=== PATIENT | male | born 1980 ===

== ENCOUNTER 2019-07-10 15:34 | Emergency (ER) | payer OTHER ==
--- NOTE | 2019-07-10 17:02 | ED ---
Neurological HPI - HPI Summary HPI Summary: This patient is a 38 year old M presenting to [facility] with a chief complaint of left sided pain and heaviness since 07/08/19. Pt has a PMHx of migraines. So his FLORIAN began like a normal FLORIAN on 07/07 with pain throughout his whole head. However on 07/08 migrated to his left side of his head. He reports gradual progression of general left sided tingling and heaviness. Pt reports left eye twitching, swollen left side of face, left middle finger is painful, and he reports he feels a nerve radiating from finger to neck and toe up leg on left side. Pt denies issue with vision, neck pain, unsteady gait, dizziness. Pt also has PMHx of sinus issues. Denies fevers. - History of Current Complaint Chief Complaint: EDNeurologicalDeficit Stated Complaint: NUMBNESS/HEADACHE PER PT Time Seen by Provider: 07/10/19 16:33 Hx Obtained From: Patient Onset/Duration: Gradual Onset Timing: Constant Onset Severity: Moderate Current Severity: Moderate Pain Intensity: 6 Pain Scale Used: 0-10 Numeric Character: Pressure, Numbness/Tingling Aggravating: Nothing Alleviating: Nothing Associated Signs and Symptoms: Positive: Headache. Negative: Unsteady Gait, Visual Changes, Dizziness, Neck Pain/Stiffness - Allergy/Home Medications Allergies/Adverse Reactions: Allergies Allergy/AdvReac Type Severity Reaction Status Date / Time No Known Allergies Allergy Verified 07/10/19 15:39 PMH/Surg Hx/FS Hx/Imm Hx Sensory History: Denies: Hx Legally Blind, Hx Deafness Opthamlomology History: Denies: Hx Legally Blind EENT History: Denies: Hx Deafness - Surgical History Surgical History: None Infectious Disease History: No Infectious Disease History: Denies: Traveled Outside the [place] in Last 30 Days - Family History Known Family History: Positive: Other - trigeminal neuralgia - Social History Alcohol Use: Occasionally Substance Use Type: Reports: None Hx Tobacco Use: Yes Smoking Status (MU): Light Every Day Tobacco Smoker Review of Systems Positive: Other - L eye twitching. Negative: Blurred Vision Negative: Other - neck pain Neurological: Other - nerve radiating from finger to neck and toe up leg on left side; neg - unsteady gait, dizziness Positive: Paresthesia. Negative: Weakness All Other Systems Reviewed And Are Negative: Yes Physical Exam - Summary Physical Exam Summary: Constitutional: Well-developed, Well-nourished, Alert. (-) Distressed Skin: Warm, Dry HENT: Normocephalic; Atraumatic Eyes: Conjunctiva normal Neck: Musculoskeletal ROM normal neck. (-) JVD, (-) Stridor, (-) Nuchal rigidity Cardio: Rhythm regular, rate normal, Heart sounds normal; Intact distal pulses; Radial pulses are 2+ and symmetric. (-) Murmur Pulmonary/Chest wall: Effort normal. (-) Respiratory distress, (-) Wheezes, (-) Rales Abd: Soft, (-) tenderness, (-) Distension, (-) Guarding, (-) Rebound Musculoskeletal: (-) Edema Lymph: (-) Cervical adenopathy Neuro: Alert, PERRL, Oriented x3, Strength normal, Cranial nerves II-XII are grossly intact. Strength 5/5 BUE and BLE, (-) Dysmetria, (-) Nystagmus, ambulates w steady gait. reporting paresthesia to left middle finger and left second toe Psych: Mood and affect Normal Triage Information Reviewed: Yes Vital Signs On Initial Exam: Initial Vitals Temp Pulse Resp BP Pulse Ox 98.3 F 81 14 126/78 99 07/10/19 15:36 07/10/19 15:36 07/10/19 15:36 07/10/19 15:36 07/10/19 15:36 Vital Signs Reviewed: Yes - Stella Coma Scale Best Eye Response: 4 - Spontaneous Best Motor Response: 6 - Obeys Commands Best Verbal Response: 5 - Oriented Coma Scale Total: 15 Procedures - Sedation Patient Received Moderate/Deep Sedation with Procedure: No Diagnostics - Vital Signs Vital Signs Temp Pulse Resp BP Pulse Ox 07/10/19 15:36 98.3 F 81 14 126/78 99 - Laboratory Lab Statement: Any lab studies that have been ordered have been reviewed, and results considered in the medical decision making process. - CT Brain CT CT Interpretation Completed By: Radiologist Summary of CT Findings: Brain CT reveals, per radiologist, IMPRESSION: #. Negative unenhanced head CT. ED physician has reviewed this radiology report. Re-Evaluation - Re-Evaluation First Eval Re-Evaluation Time: 18:10 Comment: Discussed results and plan of care with pt. Feeling better, requesting motrin. D/w patient he can f/u w neurology for definitive migraine medications Course/Dx - Course Course Of Treatment: 38 y/o male w migraines p/w migraines and paresthesias. - PE with well appearing male, no neuro deficits aside from L sided paresthesias. No appreciable weakness. CT head negative for abnormality, do not suspect acute neurologic process. 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 - Diagnoses Provider Diagnoses: Paresthesia, Head ache - Physician Notifications Discussed Care Of Patient With: Scotty Little Time Discussed With Above Provider: 18:09 Instructed by Provider To: Other - Agrees with outpatient nuerologist follow up given negative head CT Discharge ED - Sign-Out/Discharge Documenting (check all that apply): Patient Departure - Discharge - Discharge Plan Condition: Stable Disposition: HOME Patient Education Materials: Acute Headache (ED), Paresthesia (ED) Referrals: Scotty Little MD [Medical Doctor] - 3 Days Additional Instructions: You were seen in the ER for a headache and paresthesias. Your head CT was normal. Our neurologist recommended outpatient follow up. Return for worsening headaches, numbness or tingling, weakness or if you are concerned. - Billing Disposition and Condition Condition: STABLE Disposition: Home - Attestation Statements Document Initiated by Ayad: Yes Documenting Scribe: Heather Andrew Provider For Whom Ayad is Documenting (Include Credential): Corrie Mooney MD Scribe Attestation: Heather Sotelo, scribed for Corrie Mooney MD on 07/10/19 at 1837. Scribe Documentation Reviewed: Yes Provider Attestation: The documentation as recorded by the Heather bahena accurately reflects the service I personally performed and the decisions made by , Corrie Mooney MD Status of Scribe Document: Viewed
[2019-07-10] MEDS ORDERED: Ibuprofen TAB* 600 MG PO ONE (18:12)
[2019-07-10] MEDS ORDERED: Acetaminophen TAB* 325 MG PO ONE (18:12)
[2019-07-10 18:33] VITALS: BP 112/78
== END 2019-07-10 18:33 | disposition home or self-care (01) ==
LOC: ED 15:34 → MERGE 15:34 → ED 18:32
DX: R51 Headache (principal); R20.2 Paresthesia of skin; H52.532 Spasm of accommodation, left eye; F17.200 Nicotine dependence, unspecified, uncomplicated
CPT/HCPCS: 70450; 99282; A9270-GY